=== PATIENT | female | born 1985 | race Caucasian/White ===

== ENCOUNTER 2023-03-23 09:26 | Outpatient (AMB) | payer OTHER, SELFPAY ==
[2023-03-23 09:34] VITALS: PULSE 90; O2SAT 100; BMI 34.6
--- NOTE | 2023-03-23 09:34 | MHC.OFFVIS ---
Intake Vital Signs 03/23/23 09:34 Height 5 ft 3 in Weight 195 lb 2 oz BMI 34.6 Position Sitting Pulse 90 Pulse Source Pulse Oximeter Pulse Oximetry (%) 100 Oxygen Delivery Method Room Air Intake Visit Reasons: NPV Migraines - Got busy signal Intake Note: Pt presents as a NPV for migraines. Pt states They are getting worse in frequency and how long they are lasting. 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 Headache questionnaire: Age/time of onset? 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 Preceding causes? None Headache characteristics? Starts as a dull pressure, throbbing holocranial Pain intensity? 6-7/10 Prodrome symptoms? Exhaustion Aura? Denies Associated symptoms? photophobia, phonophobia, some osmophobia, allodynia, nausea, occasional vomiting, brain fog Focal weakness, Parethesias, Autonomic s/s? Denies Postdrome? Has residual fatigue and brain fog Triggers? None Positional, valsalva, exertional, sexual activity triggers? None Menstrual triggers? None Time of day? no specific time of day Duration? Usually 1-2 days but can be as long as 4 days Frequency? 3-4 times a month (more than 8 headache days per month) How does headache impact your life? Has to leave work or lay down in a dark room No h/o head imaging. Last eye exam- 1 yr ago, has f/u exam today. Current acute medication use/interventions: Sumatriptan 50mg- helps sometimes- tolerates well. Ibuprofen 400-600mg/Tylenol 1000mg q 6 hrs prn. Previous acute medication use: None Current preventative medication use: Propranolol Er 80mg qam. Previous preventative medication use: None Non-pharmacological interventions: Rest, migraine cooling caps Other history of headache disorder? None History of musculoskeletal disorders or injury? Has lower back pain- s/p h/o breaking left knee (tends to favor the left knee) History of concussion/head injury? None History of mood disorder? Anxiety- started 7 yrs ago after her father had a aortic dissection. History of sleep disorder? Wakes up a lot to void. Lately waking up more tired. Able to fall asleep easily. Snores. History of respiratory disease? None History of CV disease? Has had some HLD, improved w/ diet changes History of coagulopathy? None History of endocrine or metabolic disease? Started on Metformin- HgA1C was approx 5.9% and her IUI clinic wanted the HgA1C to be a bit lower. Was recently started on Levothyroxine- her TSH was slightly elevated and the IUI clinic wanted to tx this as well. History of seizure? None Other? No constipation Family planning? Plans to do sperm donor in the next year. Family history of migraine or other headache disorder? none PFSH Surgical History History of placement of ear tubes Family History (Updated 03/23/23 @ 09:41 by Rubi Frank CMA) Father Hypertension Hypercholesteremia Maternal Aunt Brain tumor Paternal Uncle Leukemia Social History (Updated 03/23/23 @ 09:42 by Rubi Frank CMA) Alcohol intake: current Alcohol intake frequency: holidays/special occasions only Patient Tobacco Use Status: Former Tobacco user Review of Systems Const Details: See scanned ROS form Physical Exam Vital Signs: Last Vital Signs Pulse 90 03/23/23 09:34 Pulse Ox 100 03/23/23 09:34 Oxygen Delivery Method Room Air 03/23/23 09:34 BMI result Body Mass Index 34.6 Const Orientation/consciousness: patient oriented x3 HEENT Other: No palpable scalp tenderness. Head: Yes normocephalic Resp Effort & Inspection: normal respiratory effort and able to speak in complete sentences Neuro Other: Photophobic General: patient oriented x3 Cranial nerves: Yes CN's II-XII intact bilaterally Cognition (Neuro): normal cognition Gait exam (Neuro): Normal gait present Motor exam (neuro): 5/5 motor strength present throughout Deep tendon reflexes (DTR's): Right triceps reflex intensity grade: 2+, Left triceps reflex intensity grade: 2+, Rt Biceps (C5, C6): 2+, Left biceps reflex intensity grade: 2+, Right brachioradialis reflex intensity grade: 2+, Left brachioradialis reflex intensity grade: 2+, Right patellar reflex intensity grade: 2+ and Left patellar reflex intensity grade: 2+ Coordination: [id number] test normal, tandem gait normal and Romberg test negative Pupils: Normal pupillary reactivity/response: bilateral Psych Appearance: grossly normal Mental Status: mental status grossly normal Speech and movement: Normal speech and movement present Affect: normal affect Attitude: cooperative Thought process: Normal thought process present Assessment & Plan Assessment & Plan (1) Migraine without aura: Code(s): G43.009 - Migraine without aura, not intractable, without status migrainosus (2) Snoring: Code(s): R06.83 - Snoring (3) Excessive daytime sleepiness: Code(s): G47.19 - Other hypersomnia (4) Sleep difficulties: Code(s): G47.9 - Sleep disorder, unspecified Plan Pt advised to undergo HST to assess for sleep apnea For overall headache management: Discussed importance of good self-care, including but not limited to maintaining a healthy diet, adequate fluid intake, adequate sleep, and engaging in regular physical activity. For headache triggers: Track headaches, especially after any treatment regimen changes. Migraine [employer] is one of many headache tracking apps. Light sensitivity tips: Patient may try blue light filtering glasses, green glasses, green light therapy.. For acute migraine w/o aura headache treatment: Discussed importance of taking acute medications at the first sign of headache, however stressed importance of avoiding acute medication overuse (especially with combined headache medications). Increase Sumatriptan to 100mg tab, 1/2 - 1 tab (50-100mg) at onset of headache, may repeat in 2 hours. Max of 2 tabs (200mg) per 24 hours. May adjunct with OTC Tylenol 650mg q 4 hours, Ibuprofen 600mg q 6 hours, or Naproxen 440mg q 12 hrs prn. Previous acute migraine medication trials: None Acute migraine medication contraindications: None at this time For migraine w/o aura headache prevention medication: Discussed that preventative medications should be taken routinely as prescribed for best effect, it may take several weeks for full effect to take effect. Start Riboflavin 400mg qam Start Magnesium 400mg qhs Continue Propranolol Er 80mg qam. Previous migraine prevention medication trials: None Migraine prevention medication contraindications: Would avoid topiramate, CGRP MaBs d/t pt plans to become in the next year. Information also given on non-pharmacological interventions, such as Cefaly or Nerivio neuromodulation devices. Pt to follow-up in 3 months or sooner prn. Orders: Orders RT home sleep study Today G47.19 - Other hypersomnia, G47.9 - Sleep disorder, unspecified, R06.83 - Snoring Medications: New sumatriptan succinate (0.5 - 1 x 100 mg) 50 - 100 mg orally at onset of headache, may repeat in 2 hrs PRN; max 2 tabs per day or 4 tabs/week (may take with Ibuprofen) 30 days 12 tabs 6RF migraine headache magnesium oxide may hold for loose stools 400 mg PO BEDTIME 30 days 30 tabs 6RF riboflavin (vitamin B2) 400 mg PO DAILY 30 days 30 tabs 6RF Coding Level of Care Code New Pt Level 4 (46744) Diagnoses Migraine without aura G43.009 Snoring R06.83 Excessive daytime sleepiness G47.19 Sleep difficulties G47.9
== END 2023-03-23 10:50 | disposition home or self-care (01) ==
PROVIDERS: Visit Provider Nurse Practitioner Family
DX: G43.009 Migraine without aura, not intractable, without status migrainosus (principal); R06.83 Snoring; G47.19 Other hypersomnia; G47.9 Sleep disorder, unspecified
CPT/HCPCS: 99204

== ENCOUNTER → 2023-03-23 09:26 | Outpatient (BNVA) | payer OTHER, SELFPAY | PROVIDERS: Visit Provider Nurse Practitioner Family ==

== ENCOUNTER → 2023-06-09 11:22 | Outpatient (REF) | payer OTHER, SELFPAY | LOC: HO.SL 11:22 | PROVIDERS: Visit Provider Nurse Practitioner Family | DX: G47.19 Other hypersomnia (principal); G47.9 Sleep disorder, unspecified; R06.83 Snoring | CPT/HCPCS: 95806 ==

== ENCOUNTER → 2023-06-09 11:33 | Outpatient (BNV) | payer OTHER, SELFPAY | PROVIDERS: Visit Provider Psychiatry & Neurology Neurology | DX: R06.83 Snoring (principal); R40.0 Somnolence | CPT/HCPCS: 95806 ==

== ENCOUNTER 2023-07-07 11:20 | Outpatient (AMB) | payer OTHER, SELFPAY ==
[2023-07-07 11:35] VITALS: BP 120/84; PULSE 95; O2SAT 99; BMI 35.6
--- NOTE | 2023-07-07 11:35 | A.OFFVIS_ITS ---
Intake Vital Signs 07/07/23 11:35 Height 5 ft 3 in Weight 201 lb 2 oz BMI 35.6 BP 120/84 Blood Pressure Location Lt brachial Position Sitting Pulse 95 Pulse Source Pulse Oximeter Pulse Oximetry (%) 99 Oxygen Delivery Method Room Air Intake Visit Reasons: 3m f/u Migraines - LVM Intake Note: Pt presents to the office today for a 3 month follow up for migraines. Allergies No Known Allergies Allergy (Verified 07/07/23 11:35) Medication List - Last Reconciled 07/07/23 by JESSICA Wolf diltiazem HCl 120 mg PO DAILY ferrous sulfate 325 mg PO DAILY levothyroxine 25 mcg PO DAILY magnesium oxide 400 mg PO BEDTIME 30 days mecobalamin (vitamin B12) PO DAILY metformin 500 mg PO BID propranolol ER 80 mg PO DAILY riboflavin (vitamin B2) 400 mg PO DAILY 30 days sumatriptan succinate 50 - 100 mg orally at onset of headache, may repeat in 2 hrs PRN; max 2 tabs per day or 4 tabs/week (may take with Ibuprofen) 30 days HPI HPI Comments History of Present Illness Details 38-yr-old female presents for f/u visit. Pt denies any significant interval medical changes. Pt 's HST showed AHI < 1/hr w/ O2 cl 58%. Pt continues to have sleep difficulties. Pt denies h/o asthma or COPD. Pt states migraines are more managable. She is better able to catch them- using Ibuprofen and Sumatriotan 50mg- usually works, not always. She never rec'd Sumatripatn 100mg order. Having 3-4 headache days per week. Still has plans for next yr. [facility] Surgical History History of placement of ear tubes Family History Father Hypertension Hypercholesteremia Maternal Aunt Brain tumor Paternal Uncle Leukemia Social History Alcohol intake: current Alcohol intake frequency: holidays/special occasions only Patient Tobacco Use Status: Former Tobacco user Review of Systems Const All systems reviewed & are unremarkable except as noted in HPI and below Physical Exam Vital Signs: Last Vital Signs Pulse 95 07/07/23 11:35 BP 120/84 07/07/23 11:35 Pulse Ox 99 07/07/23 11:35 Oxygen Delivery Method Room Air 07/07/23 11:35 BMI result Body Mass Index 35.6 Const General: cooperative and no acute distress Orientation/consciousness: patient oriented x3 HEENT Head: Yes normocephalic Resp Effort & Inspection: normal respiratory effort and able to speak in complete sentences Neuro General: patient oriented x3, gait normal and CN's II-XI intact bilaterally Cognition (Neuro): normal cognition Motor exam (neuro): 5/5 motor strength present throughout Psych Appearance: grossly normal Mental Status: mental status grossly normal Speech and movement: Normal speech and movement present Affect: normal affect Attitude: cooperative Thought process: Normal thought process present Thought content: Normal thought content present Insight: Good insight present (Psych) Judgement: Good judgement present (Psych) Assessment & Plan Assessment & Plan (1) Migraine without aura: Code(s): G43.009 - Migraine without aura, not intractable, without status migrainosus (2) Nocturnal hypoxemia: Code(s): G47.34 - Idiopathic sleep related nonobstructive alveolar hypoventilation (3) Snoring: Code(s): R06.83 - Snoring (4) Excessive daytime sleepiness: Code(s): G47.19 - Other hypersomnia (5) Sleep difficulties: Code(s): G47.9 - Sleep disorder, unspecified Plan Pt advised to undergo in-lab PSG to furtehr assess for sleep apnea and nocturnal hypoxemia. ? For overall headache management: Continue to optimize good self-care, including but not limited to maintaining a healthy diet, adequate fluid intake, adequate sleep, and engaging in regular physical activity. Track headaches. ? For acute migraine w/o aura headache treatment: Again increase Sumatriptan to 100mg tab, 1/2 - 1 tab (50-100mg) at onset of headache, may repeat in 2 hours. Max of 2 tabs (200mg) per 24 hours. May adjunct with OTC Tylenol 650mg q 4 hours, Ibuprofen 600mg q 6 hours, or Naproxen 440mg q 12 hrs prn. Previous acute migraine medication trials: None Acute migraine medication contraindications: None at this time ? For migraine w/o aura headache prevention medication: Continue Riboflavin 400mg qam May try OTC Magnesium 400mg qhs- the current tabs are hard to swallow. Continue Propranolol Er 80mg qam. Previous migraine prevention medication trials: None Migraine prevention medication contraindications: Would avoid topiramate, CGRP MaBs d/t pt plans to become in the next year. ? ? Pt to follow-up in 4-5 months or sooner prn. Orders: Orders RT PSG in-lab sleep study Today G47.19 - Other hypersomnia, G47.34 - Idiopathic sleep related nonobstructive alveolar hypoventilation, G47.9 - Sleep disorder, unspecified, R06.83 - Snoring Medications: Changed From sumatriptan succinate (0.5 - 1 x 100 mg) 50 - 100 mg orally at onset of headache, may repeat in 2 hrs PRN; max 2 tabs per day or 4 tabs/week (may take with Ibuprofen) 30 days 12 tabs 6RF migraine headache To sumatriptan succinate 100 mg orally at onset of headache, may repeat in 2 hrs PRN; max 2 tabs per day or 4 tabs/week (may take with Ibuprofen) 12 tabs 6RF migraine headache 30 days Coding Level of Care Code Est Pt Level 4 (12090) Diagnoses Migraine without aura G43.009 Nocturnal hypoxemia G47.34 Snoring R06.83 Excessive daytime sleepiness G47.19 Sleep difficulties G47.9
== END 2023-07-07 12:26 | disposition home or self-care (01) ==
PROVIDERS: Visit Provider Nurse Practitioner Family
DX: G43.009 Migraine without aura, not intractable, without status migrainosus (principal); G47.34 Idiopathic sleep related nonobstructive alveolar hypoventilation; R06.83 Snoring; G47.19 Other hypersomnia; G47.9 Sleep disorder, unspecified
CPT/HCPCS: 99214

== ENCOUNTER → 2023-07-07 11:20 | Outpatient (BNVA) | payer OTHER, SELFPAY | PROVIDERS: Visit Provider Nurse Practitioner Family ==

== ENCOUNTER 2024-05-08 14:51 | Outpatient (AMB) | payer OTHER, SELFPAY ==
[2024-05-08 15:00] VITALS: BP 110/82; PULSE 82; TEMP 37.2; O2SAT 99; BMI 34.9
--- NOTE | 2024-05-08 15:00 | A.OFFVIS_ITS ---
Vital Signs 05/08/24 15:00 Height 5 ft 3 in Weight 197 lb BMI 34.9 BP 110/82 Blood Pressure Location Rt brachial Position Sitting Pulse 82 Pulse Source Pulse Oximeter Temp 99 F Pulse Oximetry (%) 99 Oxygen Delivery Method Room Air Intake Visit Reasons: f/u for Migraines Intake Note: patient presents for follow up migraines. patient migraines are ok Allergies No Known Allergies Allergy (Verified 05/08/24 15:04) Medication List - Last Reconciled 05/08/24 by JESSICA Wolf diltiazem HCl CD 120 mg PO DAILY ferrous sulfate 325 mg PO DAILY levothyroxine 25 mcg PO DAILY mecobalamin (vitamin B12) PO DAILY metformin 500 mg PO BID propranolol ER 80 mg PO DAILY riboflavin (vitamin B2) 400 mg PO DAILY 30 days sumatriptan succinate 100 mg orally at onset of headache, may repeat in 2 hrs PRN; max 2 tabs per day or 4 tabs/week (may take with Ibuprofen) 30 days HPI Comments Details: 39-yr-old female presents for f/u visit. Pt denies any significant interval medical changes. Pt 's previous HST showed AHI < 1/hr w/ O2 cl 58%. Pt denies h/o asthma or COPD. Pt never did in-lab PAP titration study- things just came up. Pt states migraines are more manageable. She is better able to catch them- using Ibuprofen and Sumatriotan 100mg- usually effective, rarely has to take a 2nd dose. She did stop Magnesium as it was difficult to swallow and was not helping much. Not wearing her hair in a ponytail helps. Using a clip is more helpful. She is overall more active- walking her dog about 30 minutes a day- trying to eat better to help w/ her cholesterol levels. Having 1-2 headache days per week, and last severe migraine was 1.5 months ago. She is still open to . [facility] Surgical History History of placement of ear tubes Family History Father Hypertension Hypercholesteremia Maternal Aunt Brain tumor Paternal Uncle Leukemia Social History Alcohol intake: current Alcohol intake frequency: holidays/special occasions only Patient Tobacco Use Status: Former Tobacco user Physical Exam Vital Signs: Last Vital Signs Temp 99 F 05/08/24 15:00 Pulse 82 05/08/24 15:00 BP 110/82 05/08/24 15:00 Pulse Ox 99 05/08/24 15:00 Oxygen Delivery Method Room Air 05/08/24 15:00 BMI result Body Mass Index 34.9 Const General: cooperative and no acute distress Orientation/consciousness: patient oriented x3 Resp Effort & Inspection: normal respiratory effort and able to speak in complete sentences Neuro General: patient oriented x3 Cranial nerves: Yes CN's II-XII intact bilaterally Cognition (Neuro): normal cognition Psych Appearance: grossly normal Mental Status: mental status grossly normal Speech and movement: Normal speech and movement present Affect: normal affect Attitude: cooperative Assessment & Plan Assessment & Plan (1) Migraine without aura: Code(s): G43.009 - Migraine without aura, not intractable, without status migrainosus Category: Medical (2) Sleep difficulties: Code(s): G47.9 - Sleep disorder, unspecified Category: Medical (3) Nocturnal hypoxemia: Comment: mild, transient on HST. Code(s): G47.34 - Idiopathic sleep related nonobstructive alveolar hypoventilation Category: Medical Plan Pt may hold in-lab PSG to further assess for sleep apnea and nocturnal hypoxemia for now ? For overall headache management: Continue to optimize good self-care, including but not limited to maintaining a healthy diet, adequate fluid intake, adequate sleep, and engaging in regular physical activity. Track headaches. ? For acute migraine w/o aura headache treatment: Sumatriptan to 100mg tab, 1/2 - 1 tab (50-100mg) at onset of headache, may repeat in 2 hours. Max of 2 tabs (200mg) per 24 hours. May adjunct with OTC Tylenol 650mg q 4 hours, Ibuprofen 600mg q 6 hours, or Naproxen 440mg q 12 hrs prn. Previous acute migraine medication trials: None Acute migraine medication contraindications: None at this time ? For migraine w/o aura headache prevention medication: Continue Riboflavin 400mg qam Continue Propranolol Er 80mg qam. Previous migraine prevention medication trials: Magnesium 400mg qhs- tabs were hard to swallow. Migraine prevention medication contraindications: Would avoid topiramate, CGRP MaBs d/t pt plans to become in the next year. ? ? Pt to follow-up in 6 months or sooner prn. Medications: Refilled sumatriptan succinate 100 mg orally at onset of headache, may repeat in 2 hrs PRN; max 2 tabs per day or 4 tabs/week (may take with Ibuprofen) 30 days 12 tabs 6RF migraine headache riboflavin (vitamin B2) 400 mg PO DAILY 30 days 30 tabs 6RF Coding Level of Care Code Est Pt Level 4 (20831) Diagnoses Migraine without aura G43.009 Sleep difficulties G47.9 Nocturnal hypoxemia G47.34
== END 2024-05-08 15:53 | disposition home or self-care (01) ==
PROVIDERS: Visit Provider Nurse Practitioner Family
DX: G43.009 Migraine without aura, not intractable, without status migrainosus (principal); G47.9 Sleep disorder, unspecified; G47.34 Idiopathic sleep related nonobstructive alveolar hypoventilation
CPT/HCPCS: 99214

== ENCOUNTER → 2024-05-08 14:51 | Outpatient (BNVA) | payer OTHER, SELFPAY | PROVIDERS: Visit Provider Nurse Practitioner Family ==

== ENCOUNTER 2024-11-15 15:06 | Outpatient (AMB) | payer OTHER, SELFPAY ==
--- NOTE | 2024-11-15 15:20 | A.OFFVIS_ITS ---
Vital Signs 11/15/24 15:22 Height 5 ft 3 in Weight 200 lb BMI 35.4 BP 124/82 Blood Pressure Location Rt brachial Position Sitting Pulse 84 Pulse Source Pulse Oximeter Pulse Oximetry (%) 99 Oxygen Delivery Method Room Air Intake Visit Reasons: Follow Up 6mo Intake Note: Patient following up for Migraines. Direct Marketing Analyst Required: No Accompanied by: Self / Same As Patient Allergies No Known Allergies Allergy (Verified 05/08/24 15:04) Medication List - Last Reconciled 11/15/24 by JESSICA Wolf diltiazem HCl CD 120 mg PO DAILY ferrous sulfate 325 mg PO DAILY levothyroxine 25 mcg PO DAILY mecobalamin (vitamin B12) PO DAILY metformin 500 mg PO BID propranolol ER 80 mg PO DAILY riboflavin (vitamin B2) 400 mg PO DAILY 90 days sumatriptan succinate 100 mg orally at onset of headache, may repeat in 2 hrs PRN; max 2 tabs per day or 4 tabs/week (may take with Ibuprofen) 30 days HPI Comments Details: 39-yr-old female presents for f/u visit for migraine. Pt was recently diagnosed w/ hand and foot dz last week- and this has triggered a multiple day headache. Pt suffered a RLE tibial head/distal femoral fx and right ACL tear d/t a skiing accident in Aug- f/b [facility]- Dr Arora. She is starting to walk. 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 Pt states prior to this past week with being sick from the hand and foot disease, her migraine attacks have continued to be well-controlled. She is better able to catch them- using Ibuprofen and Sumatriotan 100mg- usually effective, rarely has to take a 2nd dose. States loss severe tab was 3 months ago. She is still open to . Pt 's previous HST showed AHI < 1/hr w/ O2 cl 58%. Pt denies h/o asthma or COPD. Pt never did in-lab PAP titration study- things just came up. [facility] Surgical History History of placement of ear tubes Family History Father Hypertension Hypercholesteremia Maternal Aunt Brain tumor Paternal Uncle Leukemia Social History Alcohol intake: current Alcohol intake frequency: holidays/special occasions only Patient Tobacco Use Status: Former Tobacco user Physical Exam Vital Signs: Last Vital Signs Pulse 84 11/15/24 15:22 BP 124/82 11/15/24 15:22 Pulse Ox 99 11/15/24 15:22 Oxygen Delivery Method Room Air 11/15/24 15:22 BMI result Body Mass Index 35.4 Const General: cooperative and no acute distress Orientation/consciousness: patient oriented x3 Resp Effort & Inspection: normal respiratory effort and able to speak in complete sentences Neuro General: patient oriented x3 Cranial nerves: Yes CN's II-XII intact bilaterally Cognition (Neuro): normal cognition Psych Appearance: grossly normal Mental Status: mental status grossly normal Speech and movement: Normal speech and movement present Affect: normal affect Attitude: cooperative Assessment & Plan Assessment & Plan (1) Migraine without aura: Code(s): G43.009 - Migraine without aura, not intractable, without status migrainosus Category: Medical (2) Sleep difficulties: Code(s): G47.9 - Sleep disorder, unspecified Category: Medical (3) Nocturnal hypoxemia: Comment: mild, transient on HST. Code(s): G47.34 - Idiopathic sleep related nonobstructive alveolar hypoventilation Category: Medical (4) Fracture of right tibial plateau: Comment: August 2023- right tibial plateau/distal femoral fracture with right ACL tear- secondary to skiing accident. Followed by Dr. Arora at [facility] Code(s): S82.141A - Displaced bicondylar fracture of right tibia, initial encounter for closed fracture Category: Medical Plan Pt may hold in-lab PSG to further assess for sleep apnea and nocturnal hypoxemia for now. ? For overall headache management: Continue to optimize good self-care, including but not limited to maintaining a healthy diet, adequate fluid intake, adequate sleep. Slowly increase physical activity as tolerated Track headaches. ? For acute migraine w/o aura headache treatment: Sumatriptan to 100mg tab, 1/2 - 1 tab (50-100mg) at onset of headache, may repeat in 2 hours. Max of 2 tabs (200mg) per 24 hours. May adjunct with OTC Tylenol 650mg q 4 hours, Ibuprofen 600mg q 6 hours, or Naproxen 440mg q 12 hrs prn. Previous acute migraine medication trials: None Acute migraine medication contraindications: None at this time ? For migraine w/o aura headache prevention medication: Continue Riboflavin 400mg qam Continue Propranolol Er 80mg qam. Previous migraine prevention medication trials: Magnesium 400mg qhs- tabs were hard to swallow. Migraine prevention medication contraindications: Would avoid topiramate, CGRP MaBs d/t pt plans to become in the next year. ? Patient ask for assistance with completing an FMLA form-once form is available, we will schedule patient for telehealth visit to complete form. ? Pt to follow-up in 6 months or sooner prn. Medications: Changed From riboflavin (vitamin B2) 400 mg PO DAILY 30 days 30 tabs 6RF To riboflavin (vitamin B2) 400 mg PO DAILY 90 days 90 tabs 3RF Refilled sumatriptan succinate 100 mg orally at onset of headache, may repeat in 2 hrs PRN; max 2 tabs per day or 4 tabs/week (may take with Ibuprofen) 30 days 12 tabs 6RF migraine headache Coding Level of Care Code Est Pt Level 4 (97386) Diagnoses Migraine without aura G43.009 Sleep difficulties G47.9 Nocturnal hypoxemia G47.34 Fracture of right tibial plateau S82.141A
[2024-11-15 15:22] VITALS: BP 124/82; PULSE 84; O2SAT 99; BMI 35.4
--- OUTSIDE RECORDS SUMMARY | 2024-11-15 17:14 | XMS_ITS | Clinical Summary ---
Author Organization [facility] ity Address [address] [place] [address] Care Team Providers Care Genetics Teacher Name Role Phone Amisha Montoya MD Primary Care Provider + Social History Tobacco Use Types Packs/Day Years Used Date Smoking Tobacco: Never Assessed Comments Unknown Sex and Gender Information Value Date Recorded Sex Assigned at Not on file Legal Sex Female 8:51 AM EST Gender Identity Not on file Sexual Orientation Not on file Plan of Treatment Health Maintenance Due Date Last Done Comments DTaP,Tdap,and Td Vaccines (1 - Tdap) 2006 Hepatitis B Vaccines (1 of 3 - 19+ 3-dose series) 2006 Cervical Cancer Screening: P ap Smear 2008 COVID-19 Vaccine (2023-2 5 season) 2024 Influenza Vaccine (#1) 2024 HIB Vaccines Aged Out No longer eligi ble based on patient's age to complete this topic HPV Vaccines Aged Out No longer eligi ble based on patient's age to complete this topic Hepatitis A Vaccines Aged Out No long er eligible based on patient's age to complete this topic IPV Vaccines Aged Out No longer eligi ble based on patient's age to complete this topic MMR Vaccines Aged Out No longer eligi ble based on patient's age to complete this topic Meningococcal ACWY Vaccine Aged Out N o longer eligible based on patient's age to complete this topic Meningococcal B Vaccine Aged Out No l onger eligible based on patient's age to complete this topic Pneumococcal Vaccine: Pediat rics (0 to 5 Years) and At-Risk Patients (6 to 64 Years) Aged Out No longer eligible b ased on patient's age to complete this topic RSV Immunization Patients Un nasir 20 months Aged Out No longer eligible b ased on patient's age to complete this topic Varicella Vaccines Aged Out No longer eligible based on patient's age to complete this topic Care Teams Genetics Teacher Relationship Specialty Start Date End Date Amisha Montoya MD [address] [place] [address] PCP - General 10/05/17
--- OUTSIDE RECORDS SUMMARY | 2024-11-15 17:14 | XMS_ITS | Continuity of Care Document ---
Author Organization [employer] Address [address] [address] Insurance Providers Payer Plan Claims Address Claims Phone Policy Number Group Number Relation Employer Guarantor Name Guarantor Guarantor Address Guarantor Phone [employer] [place] [id number], [place] [address] [facility] [id number] [place] [address] Problems Condition ICD9 code ICD10 code SNOMED code Start Date End Date S tatus Encounter for screening for other metabolic disorders Z13.228 Results No Results Allergies, adverse reactions, alerts No known allergies and adverse reactions Medications No administered medications reported Vital Signs No vital signs reported Social History No smoking Hx information available
== END 2024-11-15 16:01 | disposition home or self-care (01) ==
LOC: HO.HSMS 15:06
PROVIDERS: Visit Provider Nurse Practitioner Family
DX: G43.009 Migraine without aura, not intractable, without status migrainosus (principal); G47.9 Sleep disorder, unspecified; G47.34 Idiopathic sleep related nonobstructive alveolar hypoventilation; S82.141A Displaced bicondylar fracture of right tibia, initial encounter for closed fracture
CPT/HCPCS: 99214

== ENCOUNTER 2024-11-24 14:20 | Outpatient (AMB) | payer OTHER, SELFPAY ==
--- OUTSIDE RECORDS SUMMARY | 2024-11-24 14:39 | XMS_ITS | Clinical Summary ---
Author Organization [facility] ity Address [address] [place] [address] Care Team Providers Care Aviation Program Manager Name Role Phone Amisha Montoya MD Primary [...] Screening: P ap Smear 2008 COVID-19 Vaccine ( - 2023-2 5 season) 2024 Influenza Vaccine (Season Ended) 2025 HIB Vaccines Aged Out No longer eligi [...] age to complete this topic Care Teams Aviation Program Manager Relationship Specialty Start Date End Date Amisha Montoya MD [address] [place] [address] PCP - General 10/05/17
--- OUTSIDE RECORDS SUMMARY | 2024-11-24 14:39 | XMS_ITS | Continuity of Care Document ---
Author Organization [facility] Address [address] [address] Insurance Providers Payer Plan Claims Address Claims Phone Policy Number Group Number Relation Employer Guarantor Name Guarantor Guarantor Address Guarantor Phone [employer] [place] [id number] [address], [place] [address] [facility] [id number] [place] [address] Problems Condition ICD9 code ICD10 code SNOMED code Start Date End Date S tatus Encounter for screening for other metabolic disorders Z13.228 Results No Results Allergies, adverse reactions, alerts No known allergies and adverse reactions Medications No administered medications reported Vital Signs No vital signs reported Social History No smoking Hx information available
--- NOTE | 2024-11-24 16:57 | A.OFFVIS_ITS ---
Intake Visit Reasons: FMLA form Allergies No Known Allergies Allergy (Verified 05/08/24 15:04) Medication List - Last Reconciled 11/24/24 by JESSICA Wolf diltiazem HCl CD 120 mg PO DAILY ferrous sulfate 325 mg PO DAILY levothyroxine 25 mcg PO DAILY mecobalamin (vitamin B12) PO DAILY metformin 500 mg PO BID propranolol ER 80 mg PO DAILY riboflavin (vitamin B2) 400 mg PO DAILY 90 days sumatriptan succinate 100 mg orally at onset of headache, may repeat in 2 hrs PRN; max 2 tabs per day or 4 tabs/week (may take with Ibuprofen) 30 days HPI Comments Details: 39-yr-old female presents for tele video visit to complete [employer] Smith paperwork related to patient's migraine disorder. Due to patient's migraine condition, she may experience up to 4 migraine days per month typically lasting 1 day, rarely 2 days- requiring her to miss work. Patient did return to work this week, following recovery from her orthopedic injuries, states she has doing okay at this point. She is trying to take it easy and rest as needed. 11/15/2024, HPI: Pt was recently diagnosed w/ hand and foot dz last week- and this has triggered a multiple day headache. Pt suffered a RLE tibial head/distal femoral fx and right ACL tear d/t a skiing accident in Aug- / [place]- Dr Arora. She is starting to walk. 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 Pt states prior to this past week with being sick from the hand and foot disease, her migraine attacks have continued to be well-controlled. She is better able to catch them- using Ibuprofen and Sumatriotan 100mg- usually effective, rarely has to take a 2nd dose. States loss severe tab was 3 months ago. She is still open to . Pt 's previous HST showed AHI < 1/hr w/ O2 cl 58%. Pt denies h/o asthma or COPD. Pt never did in-lab PAP titration study- things just came up. COUNTS INCLUDE [facility] BEDS AT THE [facility] Surgical History History of placement of ear tubes Family History Father Hypertension Hypercholesteremia Maternal Aunt Brain tumor Paternal Uncle Leukemia Social History Alcohol intake: current Alcohol intake frequency: holidays/special occasions only Patient Tobacco Use Status: Former Tobacco user Physical Exam Const General: cooperative and no acute distress Orientation/consciousness: patient oriented x3 Resp Effort & Inspection: normal respiratory effort and able to speak in complete sentences Neuro General: patient oriented x3 Cognition (Neuro): normal cognition Psych Appearance: grossly normal Mental Status: mental status grossly normal Speech and movement: Normal speech and movement present Affect: normal affect Attitude: cooperative Telehealth Telehealth Telehealth Platform: [employer] Location of provider rendering services: practice address ([facility]) Location of patient: other ([facility]) Patient Identification confirmed using: Name, : Yes Telehealth method: video Patient verbally consented to treatment: Yes Patient verbally consented to billing insurance company: Yes Patient informed of any privacy concerns related to visit: Yes Minutes spent on Phone/Video with Pt.: 8 Assessment & Plan Assessment & Plan (1) Migraine without aura: Code(s): G43.009 - Migraine without aura, not intractable, without status migrainosus Category: Medical Plan Workplace FMLA paperwork completed, in relation to patient's migraine disorder. Continue patient's current migraine treatment plan of care. Patient aware that as she is returning to work, now that her orthopedic injuries are resolving, to let us know if she has worsening of her migraine symptoms. Will follow-up as scheduled. Coding Level of Care Code Tele Est Pt Level 3 (80789) Diagnoses Migraine without aura G43.009
== END 2024-11-29 16:20 | disposition home or self-care (01) ==
LOC: HO.HSMS 14:20
PROVIDERS: Visit Provider Nurse Practitioner Family
DX: G43.009 Migraine without aura, not intractable, without status migrainosus (principal)
CPT/HCPCS: 99213